=== PATIENT | male | born 1980 | race Two or more races ===

== ENCOUNTER 2016-11-13 18:09 | Emergency (ER) | payer SELFPAY ==
--- NOTE | ~2016-11-13 | ER ---
PATIENT'S NAME: WESTLEY [facility] AGE: 36 Y [address] ROOM: [place] [address] LOCATION: [facility] ADMIT DATE: 11/13/2016 ER/Outpatient Report DISCHARGE DATE: 11/13/2016 FAMILY PHYSICIAN: Physician, Unknown ATTENDING PHYSICIAN: Angus Jacobson CHIEF COMPLAINT: Left ear pain. TIME OF THE PATIENT ARRIVAL: 1809 hours. TIME OF THE PATIENT EVALUATION: 1816 hours. HISTORY OF PRESENT ILLNESS: This is a 36-year-old male who speaks no Bulgarian and we did interpretation through the language line. The patient states he has had left ear pain for the past 1-2 weeks. The patient feels like he has been having some pussy drainage from his ear. He states that he has not been running any fever. He has had no nasal discharge, no sore throat, and no shortness of breath. The patient denies any other problems at this time. ALLERGIES: NO KNOWN ALLERGIES. MEDICATIONS: Please see medication list nurse's notes. PAST MEDICAL HISTORY: 1. Uru-jzsrpqf-tatzqizqb diabetic. 2. Hypertension. PAST SURGERIES: Vasectomy. SOCIAL HISTORY: Denies smoking, drug, or alcohol use. REVIEW OF SYSTEMS: A 10-point review of system was completed and was negative with the exception of those discussed in the HPI. PHYSICAL EXAMINATION: VITAL SIGNS: Weight 118.0 kg taken, blood pressure is 147/67, pulse 83, PATIENT'S NAME: WESTLEY, [facility] AGE: 36 Y [address] ROOM: [place] [address] LOCATION: [facility] ADMIT DATE: 11/13/2016 ER/Outpatient Report DISCHARGE DATE: 11/13/2016 FAMILY PHYSICIAN: Physician, Unknown ATTENDING PHYSICIAN: Angus Jacobson respirations 16, temperature 98.9 degrees tympanically, and saturations 94% on room air. [place] Coma Score is 15. GENERAL: Alert, calm, well-developed male, in no acute distress. HEENT: Head: Normocephalic. Eyes: Pupils are equal and reactive to light. Ears: Left TM is erythematic and bulging. He does have a purulent effusion noted. Right TM is clear. Nose: Turbinates pink with no drainage. Throat: No exudates or erythema. Does display moist mucous membranes. LUNGS: Clear to auscultation bilaterally. No wheeze or crackles. Normal respiratory effort. HEART: Regular rate and rhythm. No lifts, thrills, or murmurs. EXTREMITIES: No clubbing, cyanosis, or edema. He has full range of motion of all limbs. LABS AND X-RAYS: None were done. IMPRESSION: Left otitis media. ASSESSMENT AND PLAN: I did give the patient reassurance. I will send him home with a prescription for amoxicillin to use as directed. He may take Tylenol or ibuprofen as needed for pain control and follow up with his primary care physician if he does not improve. The patient understands and agrees with care. GENET CRAWLEY PA-C FOR DO GLORIA ZAPIEN/dorcasl /[id number] d: t: 11/18/16 1223, OUTPATIENT REPORT
== END 2016-11-13 18:26 | disposition disaster alternative care site (69) ==
LOC: GMED 18:09
DX: H66.92 Otitis media, unspecified, left ear (principal); I10 Essential (primary) hypertension; E11.9 Type 2 diabetes mellitus without complications; Z79.84 Long term (current) use of oral hypoglycemic drugs